=== PATIENT | female | born 1950 | race Caucasian/White ===

== ENCOUNTER 2017-07-19 13:10 | Emergency (ER) | payer BC ==
[~2017-07-19] VITALS: Ht 162.6 cm; Wt 62.6 kg
[~2017-07-19 13:10] MED LIST: ANTIVERT25 MG ORAL; ATIVAN0.5 MG ORAL
[2017-07-19 13:17] VITALS: BP 136/77
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
[2017-07-19 14:34] LABS: BASOPHILS % (AUTO) 1.5 % (0.0-2.0); EOSINOPHILS % (AUTO) 3.3 % (0.0-3.0); LYMPHOCYTES % (AUTO) 30.5 % (20.0-45.0); MEAN CORPUSCULAR HEMOGLOBIN 31.6 PG (27.0-31.0); MEAN CORPUSCULAR HGB CONC 30.6 G/DL (32.0-36.0); MEAN CORPUSCULAR VOLUME 103 FL (80-99); MEAN PLATELET VOLUME 6.8 FL (6.5-10.1); MONOCYTES % (AUTO) 9.9 % (1.0-10.0); NEUTROPHILS % (AUTO) 54.7 % (45.0-75.0); PLATELET COUNT 385 K/UL (150-450); RED BLOOD COUNT 3.47 M/UL (4.20-5.40); RED CELL DISTRIBUTION WIDTH 12.7 % (11.6-14.8); WHITE BLOOD COUNT 8.1 K/UL (4.8-10.8)
[2017-07-19 14:49] LABS: ALANINE AMINOTRANSFERASE 17 U/L (3-33); ALBUMIN/GLOBULIN RATIO 1.7 (1.0-2.7); ANION GAP 12 (5-15); ASPARTATE AMINO TRANSFERASE 18 U/L (5-40); CALCIUM 9.3 mg/dL (8.6-10.2); CARBON DIOXIDE 25 mEQ/L (20-30); CHLORIDE 104 mEQ/L (98-107); CREATININE 0.7 mg/dL (0.5-0.9); GLOMERULAR FILTRATION RATE > 60 mL/min (>60); HEMOLYSIS 11; POTASSIUM 4.5 mEQ/L (3.4-4.9); SODIUM 141 mEQ/L (135-145); TOTAL PROTEIN 6.4 g/dL (6.6-8.7)
[2017-07-19] MEDS ORDERED: B COMPLEX1 EACH ORAL (15:16)
[2017-07-19] MEDS ORDERED: IRON236 MG PO (15:16)
[2017-07-19 15:27] VITALS: BP 121/63
== END 2017-07-19 16:16 | disposition home or self-care (01) ==
LOC: EMR 16:15
DX: E86.0 Dehydration (principal); D64.9 Anemia, unspecified
CPT/HCPCS: 36415; 80053; 85025; 96360; 99284

== ENCOUNTER 2017-11-09 16:48 | Emergency (ER) | payer BC, MEDICARE ==
[~2017-11-09] VITALS: Ht 162.6 cm; Wt 63.5 kg
[~2017-11-09 16:48] MED LIST changes: +B COMPLEX1 EACH ORAL; +IRON236 MG PO
[2017-11-09 16:55] VITALS: BP 141/74
[2017-11-09] MEDS ORDERED: Sodium Chloride 500ML 500 ML IV ONE (17:45)
[2017-11-09] MEDS ORDERED: Metoclopramide 10mg/2ml Inj IVP ONE (17:45)
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
[2017-11-09 17:50] LABS: APPEARANCE,URINE CLEAR; KETONES,URINE NEGATIVE (NEGATIVE); LEUKOCYTE ESTERASE ,URINE 1+ (NEGATIVE); NITRITE,URINE NEGATIVE (NEGATIVE); PH,URINE 5 (4.5-8.0); PROTEIN,URINE NEGATIVE (NEGATIVE); UROBILINOGEN,URINE NORMAL MG/DL (0.0-1.0)
[2017-11-09 17:59] LABS: RBC,URINE 0-2 /HPF (0 - 2); SQUAMOUS EPITHELIAL CELL,UR OCCASIONAL /LPF (NONE/OCC); WBC,URINE 0-2 /HPF (0 - 2)
[2017-11-09] MEDS ORDERED: REGLAN10 MG ORAL (18:17)
[2017-11-09] MEDS ORDERED: EXCEDRIN MIGRA1 EACH PO (18:17)
[2017-11-09 18:52] VITALS: BP 133/70
== END 2017-11-09 18:53 | disposition home or self-care (01) ==
LOC: EMR 17:06
DX: R51 Headache (principal)
CPT/HCPCS: 81003; 96360; 99284; J7040; J2765

== ENCOUNTER 2018-01-09 15:43 | Emergency (ER) | payer MEDICARE ==
[~2018-01-09] VITALS: Ht 162.6 cm; Wt 63.5 kg
[~2018-01-09 15:43] MED LIST changes: +EXCEDRIN MIGRA1 EACH PO; +REGLAN10 MG ORAL
[2018-01-09 16:00] VITALS: BP 135/67
--- NOTE | 2018-01-09 16:34 | Emergency Room Report ---
History of Present Illness General Chief Complaint: Generalized Weakness Source: Patient (Luz Danielle) Present Illness HPI 67-year-old female presents to the emergency department requesting IV bag to relieve her symptoms of fatigue, intermittent forearm cramps, and generally feeling "under the weather" since returning from [place] 2 days ago. She denies pain at this time. Denies fevers, chills him in nausea, vomiting or diarrhea. Denies blurry vision, or ascending muscle weakness. She denies leg pain, lower extremity swelling, erythema. Patient states that she has a history of difficulty absorbing vitamins and that her property investor told her to come to the emergency department for " sodium chloride IV" when she feels weak. Denies SOB, CP, Palpitations, LOC, AMS, dizziness, Changes in Vision, Sensation, paresthesias, or a sudden severe headache. Pmhx of Gastric bypass and having a heart murmur. Pt. reports her property investor recommends that she have IV fluids regularly however her PCP does not facilitate this. (Luz Danielle) Allergies: Coded Allergies: No Known Allergies (Unverified , 12/30/15) Patient History Past Medical History: other - gastric bypass Past Surgical History: other Reviewed Nursing Documentation: PMH: Agreed, PSxH: Agreed (Luz Danielle) Nursing Documentation-PMH Past Medical History: No History, Except For Hx Cardiac Problems: Yes - "Murmur" Hx Gastrointestinal Problems: Yes - Bariatric surgery 2006 (Luz Danielle) Review of Systems All Other Systems: negative except mentioned in HPI (Luz Danielle) Physical Exam Vital Signs Date Time Temp Pulse Resp B/P (MAP) Pulse Ox O2 Delivery O2 Flow Rate FiO2 01/09/18 15:50 97.7 71 18 135/67 95 Room Air 97.7 Sp02 EP Interpretation: reviewed, normal General Appearance: well appearing, no apparent distress, alert, GCS 15, non- toxic Head: normocephalic, atraumatic ENT: hearing grossly normal, normal voice Neck: full range of motion Respiratory: chest non-tender, lungs clear, normal breath sounds, no rhonchi, no respiratory distress, no wheezing, speaking full sentences Cardiovascular #1: regular rate, rhythm, no edema, systolic murmur Gastrointestinal: normal bowel sounds, non tender, soft Musculoskeletal: normal inspection, back normal, gait/station normal, normal range of motion, non-tender, no calf tenderness Neurologic: alert, oriented x3, responsive, motor strength/tone normal, sensory intact, normal gait, speech normal, other - no motorweakness, no facial or eyelid drooping, grossly normal Psychiatric: judgement/insight normal Skin: normal color, no rash, warm/dry, well hydrated (Luz Danielle) Medical Decision Making [place] Attestation Dr. bustos is my supervising Physician whom patient management has been discussed with. (Luz Danielle) Medicare Attestation The history of Manisha Robin has been reviewed and management options for her have been examined and discussed by Doug Stock. I have personally examined and interviewed the patient. (DOUG STOCK M.D.) Diagnostic Impression: Primary Impression: MUSCLE WEAKNESS (GENERALIZED) Additional Impression: Encounter for medical screening examination ER Course 67-year-old female presents to the emergency department requesting IV bag to relieve her symptoms of fatigue, intermittent forearm cramps, and generally feeling "under the weather" since returning from [facility] 2 days ago. She denies pain at this time. Denies fevers, chills him in nausea, vomiting or diarrhea. Denies blurry vision, or ascending muscle weakness. She denies leg pain, lower extremity swelling, erythema. Patient states that she has a history of difficulty absorbing vitamins and that her property investor told her to come to the emergency department for " sodium chloride IV" when she feels weak. Denies SOB, CP, Palpitations, LOC, AMS, dizziness, Changes in Vision, Sensation, paresthesias, or a sudden severe headache. Pmhx of Gastric bypass and having a heart murmur. Pt. reports her property investor recommends that she have IV fluids regularly however her PCP does not facilitate this. This patient is well-known by myself at the emergency department as I have had her on 2 previous occasions with the same complaint where she is very adamant and persistent about wanting an IV bag with very benign clinical appearance. She has had thorough workups each time that were all unremarkable. Ddx considered but are not limited to : MS, MG, [place], [place], drug intoxication, hypovolemia, infection, rhabdomyolysis, ETOH, CVA/TIA, NMS, CT, inappropriate use of ED just to name a few. Vital signs: are WNL, pt. is afebrile, not hypotensive. H&PE are most consistent with Normal medical screening exam. NAD, non-toxic in appearance, ambulatory without neurological deficit. NO clinical evidence to support need for Emergent IV fluid administration. ORDERS: -EKG: NSR 61 BPM ED INTERVENTIONS: None required at this time. -I do not identify an emergent condition at this time. With current presentation , pt. is stable for close outpatient follow up and conservative treatment. D/ w pt. to return promptly to ED with worsening or new symptoms.- Pt. (and or responsible green party) verbalizes' understanding and agreement with proposed treatment plan.proposed treatment plan. - reiterated to pt. the same instructions that I have given her in the past: that her PCP or Card Sorter need to facilitate regular/weekly IV fluids if they feel this is necessary. . DISCHARGE: At this time pt. is stable for d/c to home. Will provide printed patient care instructions, and any necessary prescriptions. Care plan and follow up instructions have been discussed with the patient prior to discharge. (Luz Danielle P.A.) EKG Diagnostic Results EP Interpretation: Dr. Stock Rate: normal - 61 BPM Rhythm: NSR ST Segments: no acute changes ASA given to the pt in ED: No PA Scribe Text this interpretation was scribed by LAVONNE Danielle (Luz Danielle P.A.) Last Vital Signs Date Time Temp Pulse Resp B/P (MAP) Pulse Ox O2 Delivery O2 Flow Rate FiO2 01/09/18 15:50 97.7 71 18 135/67 95 Room Air 97.7 (Luz Danielle P.A.) Disposition: HOME, SELF-CARE Condition: Stable Referrals: NON PHYSICIAN (PCP) Patient Instructions: Medical Screening Exam, Weakness Additional Instructions: Take medications as directed. Follow up with a Primary Care Provider in 2-3 days, even if your symptoms have resolved. --Please review list of primary care clinics, if you do not already have a primary care provider Return sooner to ED if new symptoms occur, or current symptoms become worse. - Please note that this Emergency Department Report was dictated using Unreal Brandselectrical inspector technology software, occasionally this can lead to erroneous entry secondary to interpretation by the dictation equipment. Luz Danielle Jan 09, 2018 16:34 DOUG STOCK M.D. Jan 12, 2018 06:46
[2018-01-09 16:54] VITALS: BP 129/65
--- NOTE | 2018-01-10 15:18 | Cardiology Report ---
APPROVED REPORT EKG Measurement Heart [id number] Normal sinus rhythm Normal ECG
== END 2018-01-09 17:07 | disposition home or self-care (01) ==
LOC: EMR 16:20
DX: M62.81 Muscle weakness (generalized) (principal); R01.1 Cardiac murmur, unspecified; Z98.84 Bariatric surgery status
CPT/HCPCS: 93005; 99283